=== PATIENT | female | born 1990 | race Caucasian/White ===

== ENCOUNTER 2020-07-20 05:58 | Emergency (ER) | payer MEDICAID ==
--- NOTE | 2020-07-20 06:10 | ERPHSYRPT ---
- History of Present Illness Time Seen by Provider: 07/20/20 06:09 Source: patient Exam Limitations: no limitations Physician History: The patient is a 30-year-old female who is otherwise healthy presents with a chief complaint of cough cold symptoms to include sinus congestion, sore throat and a productive cough that has been present over the last 3 days. Over the last 24 hours she is endorsed having lower back pain. She denies fever, chills, nausea, vomiting, diarrhea and abdominal pain. She reportedly was tested for COVID within the last 3 days and her results were negative. She reportedly took some ibuprofen for pain a couple hours prior to arrival with no relief. She denies symptoms of a UTI to include dysuria, bladder pressure, hesitancy but did endorse having increased frequency and states that she is afraid that she may be developing "urosepsis" because she had lower back pain in the past prior to her diagnosis. Denies any recent sick contacts, specifically anybody was tested positive for COVID-19 and denies any recent travel outside of the country. Allergies/Adverse Reactions: clarithromycin [From Biaxin] Allergy (Mild, Verified 07/20/20 06:20) Hives Hx Tetanus, Diphtheria Vaccination/Date Given: No Hx Influenza Vaccination/Date Given: No Hx Pneumococcal Vaccination/Date Given: No Travel Risk - International Travel Have you traveled outside of the country in past 3 weeks: No - Coronavirus Screening Are you exhibiting any of the following symptoms?: Yes Symptoms: Fever, Cough: New Onset, Shortness of Breath Close contact with a COVID-19 positive Pt in past 14-21 Days: No - Review of Systems Constitutional: No Symptoms Eyes: No Symptoms Ears, Nose, & Throat: No Symptoms, Nose Congestion, Throat Pain, Painful Swallowing, No Ear Pain, No Ear Discharge Respiratory: Cough, No Dyspnea, No Dyspnea on Exertion (SALTER) Cardiac: No Symptoms Abdominal/Gastrointestinal: No Nausea, No Vomiting, No Diarrhea, No Constipation Genitourinary Symptoms: Frequency, No Dysuria, No Urgency, No Flank Pain, No , No Vaginal Bleeding, No Vaginal Discharge Musculoskeletal: Back Pain, No Neck Pain Skin: No Symptoms Neurological: No Symptoms Psychological: No Symptoms Endocrine: No Symptoms Hematologic/Lymphatic: No Symptoms Immunological/Allergic: No Symptoms All Other Systems: Reviewed and Negative - Past Medical History Pertinent Past Medical History: No Neurological History: No Pertinent History ENT History: No Pertinent History Cardiac History: No Pertinent History Respiratory History: No Pertinent History Endocrine Medical History: No Pertinent History Musculoskeletal History: No Pertinent History GI Medical History: No Pertinent History History: No Pertinent History Psycho-Social History: No Pertinent History Female Reproductive Disorders: No Pertinent History - Past Surgical History Past Surgical History: No Neuro Surgical History: No Pertinent History Cardiac: No Pertinent History Respiratory: No Pertinent History Gastrointestinal: No Pertinent History Genitourinary: No Pertinent History Musculoskeletal: No Pertinent History Female Surgical History: No Pertinent History - Social History Smoking Status: Never smoker Exposure to second hand smoke: No Drug Use: none Patient Lives Alone: No - Nursing Vital Signs Nursing Vital Signs: Initial Vital Signs Temperature 98.6 F 07/20/20 06:09 Pulse Rate 91 H 07/20/20 06:09 Respiratory Rate 16 07/20/20 06:09 Blood Pressure 121/71 07/20/20 06:09 O2 Sat by Pulse Oximetry 98 07/20/20 06:09 Pain Scale Pain Intensity 6 - Physical Exam General Appearance: no apparent distress, alert Eye Exam: PERRL/EOMI Ears, Nose, Throat Exam: normal ENT inspection, TMs normal, pharynx normal, moist mucous membranes, No TM abnormal (R), No TM abnormal (L), No pharyngeal erythema, No tonsillar exudate Neck Exam: normal inspection, non-tender, supple, No meningismus Respiratory Exam: normal breath sounds, lungs clear, airway intact, No chest ten derness, No respiratory distress, No diminished breath sounds, No accessory muscle use Cardiovascular Exam: regular rate/rhythm, normal heart sounds, normal peripheral pulses, capillary refill <2 sec, No murmur, No friction rub, No gallop, No tachycardia Gastrointestinal/Abdomen Exam: soft, No tenderness, No distention, No mass Pelvic Exam: not done Rectal Exam: deferred Back Exam: No CVA tenderness, No vertebral tenderness, No rash, No point tenderness Extremity Exam: normal inspection, No pedal edema, No swelling Neurologic Exam: alert, oriented x 3, cooperative Skin Exam: normal color, warm, dry, rash, No petechiae, No jaundice SpO2 Interpretation: normal O2 Delivery: Room Air - Course Nursing assessment & vital signs reviewed: Yes - Radiology Exams Chest X-ray Interpretation: Interpreted by me, Negative, Other (No evidence of acute cardiopulmonary process) Ordered Tests: Active Orders 24 hr Category Date Time Status CHEST 2 VIEWS (PA AND LAT) Stat Exams 07/20/20 06:17 Taken HCG,QUALITATIVE URINE Stat Lab 07/20/20 06:24 Completed UA W/RFX UR CULTURE Stat Lab 07/20/20 06:24 Completed Medication Summary Discontinued Medications Generic Name Dose Route Start Last Admin Trade Name Kole PRN Reason Stop Dose Admin Acetaminophen 1,000 mg 07/20/20 06:19 07/20/20 06:31 Tylenol Extra Strength 500 Mg PO 07/20/20 06:20 1,000 mg STAT STA Administration Acetaminophen Confirm 07/20/20 06:30 Tylenol Extra Strength 500 Mg Administered 07/20/20 06:31 Dose 1,000 mg .ROUTE .STK-MED ONE Ketorolac Tromethamine 15 mg 07/20/20 06:18 07/20/20 06:31 Toradol 30 Mg Injection IV 07/20/20 06:19 15 mg STAT ONE Administration Ketorolac Tromethamine Confirm 07/20/20 06:30 Toradol 30 Mg Injection Administered 07/20/20 06:31 Dose 30 mg .ROUTE .STK-MED ONE Lab/Rad Data: Laboratory Results 07/20/20 07/20/20 Range/Units 06:24 06:24 Urine Color YELLOW (YELLOW) Urine Appearance CLEAR (CLEAR) Urine pH 5.0 (5-6) Ur Specific [place] 1.015 (1.005-1.025) Urine Protein NEGATIVE (Negative) Urine Ketones NEGATIVE (NEGATIVE) Urine Blood NEGATIVE (0-5) James/ul Urine Nitrite NEGATIVE (NEGATIVE) Urine Bilirubin NEGATIVE (NEGATIVE) Urine Urobilinogen NEGATIVE (0-1) mg/dL Ur Leukocyte Esterase NEGATIVE (NEGATIVE) Urine WBC (Auto) NONE (0-5) /HPF Urine RBC (Auto) NONE (0-2) /HPF U Epithel Cells (Auto) NONE (FEW) /HPF Urine Bacteria (Auto) NONE (NEGATIVE) /HPF Urine Mucus (Auto) SLIGHT (NEGATIVE) /HPF Urine Culture Reflexed NO (NO) Urine Glucose NEGATIVE (NEGATIVE) mg/dL Urine HCG, Qual NEGATIVE (Negative) - Progress Air Movement: good Progress Note: 07/20/20 06:30 Nontoxic in appearance. The patient presents with symptoms consistent with a URI however she is already been tested for COVID within the last 72 hours and tested negative and I do feel the need to repeat her testing today given that she has no concerns for this. I will go out and obtain a chest x-ray to rule out evidence of pneumonia or any changes consisted of COVID-19. Her ENT exam is relatively benign with no evidence of strep pharyngitis or tonsillitis or any e vidence of a BULWARK CARPENTER. Also have a low concern for renal colic at this time and we will go ahead and check a urine to see if she has any evidence of a UTI which in conjunction with back pain are present with suggest pyelonephritis warranting antibiotics. If she has significant amount of hematuria and is not on her menstrual cycle and has no evidence of infection I would consider CT the patient to eval for evidence of an obstructing kidney stone which I currently have a low suspicion for at this time as well. Ultimately, if her work-up is negative she will be discharged home with prescriptions for symptomatic relief to include Afrin nasal spray, Tylenol, ibuprofen in addition to Tessalon Perles. I will send these medications to her pharmacy. 07/20/20 06:41 The patient was ambulated with while monitoring her SpO2 and her reading was 97% and she had no respiratory distress. 07/20/20 06:47 UA was reassuring and UPT negative. Patient reassessed to find that she was lying supine and resting comfortably. She was updated with her workup results and diagnosis. She did not need a work note. Blood Culture(s) Obtained: No Antibiotics given: No Counseled pt/family regarding: lab results, diagnosis, need for follow-up, rad results - Departure Departure Disposition: Extended Care Facility Clinical Impression: Upper respiratory infection, viral, Back pain Condition: Good Critical Care Time: No Referrals: DOCTOR,NO FAMILY [Primary Care Provider] - Instructions: Low Back Pain in Adults, Viral Upper Respiratory Infection, Adult (DC) Prescriptions: Ibuprofen 400 mg PO Q6HPRN PRN #30 tablet PRN Reason: Pain And/Or Fever Benzonatate [Tessalon [place]] 100 mg PO [id number] PRN #30 capsule PRN Reason: Cough Oxymetazoline HCl Nasal [Afrin Nasal [place]] 1 spray NS BID PRN PRN 3 Days #1 bottle PRN Reason: Sinus Congestion Sodium Chloride [Saline Nasal [place]] 30 ml NS BID PRN #1 spray
[2020-07-20 06:11] VITALS: O2SAT 98
[2020-07-20] MEDS ORDERED: TORAdol 30 mg Injection IV ONE (06:18)
[2020-07-20] MEDS ORDERED: TYLENOL EXTRA STRENGTH 500 MG PO STA (06:19)
[2020-07-20] MEDS ORDERED: TYLENOL EXTRA STRENGTH 500 MG ONE (06:30)
[2020-07-20] MEDS ORDERED: TORAdol 30 mg Injection ONE (06:30)
[2020-07-20 06:43] LABS: Appearance CLEAR (CLEAR); Bilirubin NEGATIVE (NEGATIVE); Blood NEGATIVE Ery/ul (0-5); Glucose NEGATIVE (NEGATIVE); Ketones NEGATIVE (NEGATIVE); Leukocyte Esterase NEGATIVE (NEGATIVE); Mucus SLIGHT /HPF (NEGATIVE); Nitrite NEGATIVE (NEGATIVE); Protein,Urine Dip NEGATIVE (Negative); Specific Gravity 1.015 (1.005-1.025); Urobilinogen NEGATIVE mg/dL (0-1)
[2020-07-20 06:52] VITALS: BP 106/66; PULSE 80
--- NOTE | 2020-07-20 08:06 | XRAY ---
Indication: Cough. Comparison: September 03, 2013. PA/lateral chest again demonstrates normal heart, lungs, and bony thorax.
== END 2020-07-20 06:58 | disposition home or self-care (01) ==
LOC: ED 05:58
DX: J06.9 Acute upper respiratory infection, unspecified (principal); M54.5 Low back pain; R50.9 Fever, unspecified; R05 Cough; R06.02 Shortness of breath
CPT/HCPCS: 36000; 71046; 81001; 84703; 96374; 99284; J1885; A9270-GY

== ENCOUNTER 2021-11-24 21:19 | Emergency (ER) | payer BC, MEDICAID ==
--- NOTE | 2021-11-24 21:49 | ERPHSYRPT ---
- History of Present Illness Time Seen by Provider: 11/24/21 21:40 Source: patient Exam Limitations: no limitations Physician History: This is a 31-year-old white female who does not have a primary care physician and presents with dysuria and hematuria that she noticed earlier today. She also felt as though there was some difficulty in urinating and she examined herself and felt there was a walnut sized abnormality. She does not have abdominal pain she is never had anything like this before. She was recently diagnosed with Covid and was having coughing spells. She denies placing any foreign body in her vaginal vault. Timing/Duration: today Activites at Onset: none Quality: burning Severity of Pain-Max: none Severity of Pain-Current: none Sexual intercourse history: non-contributory Modifying Factors: Improves With: nothing Associated Symptoms: denies symptoms Allergies/Adverse Reactions: clarithromycin [From Biaxin] Allergy (Mild, Verified 11/24/21 21:33) Hives Home Medications: norgestimate-ethinyl estradioL [Norgestimate-Ee 0.25-0.035 mg] 1 tab PO DAILY 11/24/21 [History] Hx Tetanus, Diphtheria Vaccination/Date Given: No Hx Influenza Vaccination/Date Given: No Hx Pneumococcal Vaccination/Date Given: No Travel Risk - International Travel Have you traveled outside of the country in past 3 weeks: No - Coronavirus Screening Are you exhibiting any of the following symptoms?: No Close contact with a COVID-19 positive Pt in past 14-21 Days: No - Review of Systems Constitutional: No Symptoms Eyes: No Symptoms Ears, Nose, & Throat: No Symptoms Respiratory: No Symptoms Cardiac: No Symptoms Abdominal/Gastrointestinal: No Symptoms Genitourinary Symptoms: Dysuria, Hematuria, Other (Intravaginal walnut size mass) Musculoskeletal: No Symptoms Skin: No Symptoms Neurological: No Symptoms Psychological: No Symptoms Endocrine: No Symptoms Hematologic/Lymphatic: No Symptoms Immunological/Allergic: No Symptoms All Other Systems: Reviewed and Negative - Past Medical History Pertinent Past Medical History: No Neurological History: No Pertinent History ENT History: No Pertinent History Cardiac History: No Pertinent History Respiratory History: No Pertinent History Endocrine Medical History: No Pertinent History Musculoskeletal History: No Pertinent History GI Medical History: No Pertinent History History: No Pertinent History Psycho-Social History: No Pertinent History Female Reproductive Disorders: No Pertinent History - Past Surgical History Past Surgical History: No Neuro Surgical History: No Pertinent History Cardiac: No Pertinent History Respiratory: No Pertinent History Gastrointestinal: No Pertinent History Genitourinary: No Pertinent History Musculoskeletal: No Pertinent History Female Surgical History: No Pertinent History - Social History Smoking Status: Never smoker How long have you smoked: 5 yrs Exposure to second hand smoke: No Drug Use: none Patient Lives Alone: No - Nursing Vital Signs Nursing Vital Signs: Initial Vital Signs Temperature 97.9 F 11/24/21 21:20 Pulse Rate 97 H 11/24/21 21:20 Respiratory Rate 18 11/24/21 21:20 Blood Pressure 157/95 11/24/21 21:20 O2 Sat by Pulse Oximetry 98 11/24/21 21:20 Pain Scale Pain Intensity 2 - Physical Exam General Appearance: no apparent distress, alert, anxiety Eye Exam: PERRL/EOMI, eyes nml inspection Ears, Nose, Throat Exam: normal ENT inspection, moist mucous membranes Neck Exam: normal inspection, non-tender, supple, full range of motion Respiratory Exam: airway intact, No chest tenderness, No respiratory distress Gastrointestinal/Abdomen Exam: soft, normal bowel sounds, No tenderness Pelvic Exam: other (External piercing noted.) Rectal Exam: not done Back Exam: normal inspection, normal range of motion, No CVA tenderness, No vertebral tenderness Extremity Exam: normal inspection, normal range of motion, pelvis stable Neurologic Exam: alert, oriented x 3, cooperative, punch press setter II-XII nml as tested, normal mood/affect, nml cerebellar function, nml station & gait, sensation nml Skin Exam: normal color, warm, dry Lymphatic Exam: No adenopathy SpO2 Interpretation: normal O2 Delivery: Room Air - Course Nursing assessment & vital signs reviewed: Yes Ordered Tests: Active Orders 24 hr Category Date Time Status PELVIS WITHOUT CONTRAST [CT] Stat Exams 11/24/21 21:49 Taken UA W/RFX UR CULTURE Stat Lab 11/24/21 21:51 Completed Lab/Rad Data: Laboratory Results 11/24/21 Range/Units 21:51 Urine Color YELLOW (YELLOW) Urine Appearance CLEAR (CLEAR) Urine pH 6.0 (5-6) Ur Specific [place] 1.013 (1.005-1.025) Urine Protein NEGATIVE (Negative) Urine Ketones NEGATIVE (NEGATIVE) Urine Blood SMALL (0-5) James/ul Urine Nitrite NEGATIVE (NEGATIVE) Urine Bilirubin NEGATIVE (NEGATIVE) Urine Urobilinogen NEGATIVE (0-1) mg/dL Ur Leukocyte Esterase NEGATIVE (NEGATIVE) Urine WBC (Auto) NONE (0-5) /HPF Urine RBC (Auto) NONE (0-2) /HPF Urine Bacteria (Auto) NONE (NEGATIVE) /HPF Urine Mucus (Auto) SLIGHT (NEGATIVE) /HPF Urine Culture Reflexed NO (NO) Urine Glucose NEGATIVE (NEGATIVE) mg/dL - Progress Air Movement: good Progress Note: 11/24/21 23:20 CAT scan of the pelvis without contrast shows a questionable 1.7 cm low- attenuation mass associated with the right urethra/anterior vaginal wall cyst versus Bartholin gland cyst. Blood Culture(s) Obtained: No Antibiotics given: No Counseled pt/family regarding: lab results, diagnosis, need for follow-up, rad results - Departure Departure Disposition: Home Clinical Impression: Vaginal wall cyst Condition: Stable Critical Care Time: No Referrals: DOCTOR,NO FAMILY [Primary Care Provider] - Follow up/PCP as directed Additional Instructions: Call your java developer consultant tomorrow morning to make arrangements for follow-up appointment.
[2021-11-24 22:18] LABS: Appearance CLEAR (CLEAR); Bilirubin NEGATIVE (NEGATIVE); Blood SMALL Ery/ul (0-5); Glucose NEGATIVE (NEGATIVE); Ketones NEGATIVE (NEGATIVE); Leukocyte Esterase NEGATIVE (NEGATIVE); Mucus SLIGHT /HPF (NEGATIVE); Nitrite NEGATIVE (NEGATIVE); Protein,Urine Dip NEGATIVE (Negative); Specific Gravity 1.013 (1.005-1.025); Urobilinogen NEGATIVE mg/dL (0-1)
[2021-11-24 23:21] VITALS: BP 119/87; PULSE 82; O2SAT 97
--- NOTE | 2021-11-25 09:04 | XRAY ---
Indication: Vaginal/bladder mass. Multiple contiguous axial images obtained through the pelvis only without contrast as ordered. Comparison: None Visualized bowel loops appear nonobstructed with mild scattered fecal debris and scattered sigmoid diverticulosis. No free fluid/air. Retroverted uterus with 1 cm cervical nabothian cyst. Remaining urinary bladder, uterus, and major arteries/veins are unremarkable for noncontrast exam. No pathologic pelvic or inguinal lymphadenopathy. Osseous structures intact. No ventral or inguinal hernias. Impression: 1. Cervical nabothian cyst. Pelvic sonogram could confirm if clinically warranted. 2. Mild fecal stasis and sigmoid diverticulosis. 3. Remaining CT pelvis without contrast exam is negative. Comment: Preliminary interpretation made by [facility]. No critical discrepancy.
== END 2021-11-24 23:27 | disposition home or self-care (01) ==
LOC: ED 21:19
DX: N89.8 Other specified noninflammatory disorders of vagina (principal); R30.0 Dysuria; R31.9 Hematuria, unspecified; U07.1 COVID-19
CPT/HCPCS: 72192; 81001; 99284